=== PATIENT | male | born 1945 | race Caucasian/White ===

== ENCOUNTER 2022-07-09 02:48 | Observation (INO) ==
[2022-07-09] MEDS ORDERED: Ondansetron 4 MG/2 ML VIAL IVP PRN (05:44)
[2022-07-09] MEDS ORDERED: Naloxone 0.4 MG/ML INJ IVP PRN (05:44)
[2022-07-09] MEDS ORDERED: Ipratropium 1 PUFF INHALER IH PRN (06:37)
[2022-07-09] MEDS: *HR* Enoxaparin 40 MG/0.4 ML SYRINGE SQ SCH (09:57)
[2022-07-09] MEDS: Acetaminophen 325 MG TABLET PO PRN (11:07)
[2022-07-10 06:08] LABS: Basophils % 0.3 %; Eosinophils # 0.1 K/mcL (0.0-0.6); Eosinophils % 0.8 %; Hematocrit 39.2 % (37.5-50.1); Hemoglobin 13.5 g/dL (12.9-16.9); Lymphocytes # 2.2 K/mcL (0.6-4.6); Lymphocytes % 34.4 %; Mean Corpuscular HGB Conc 34.4 g/dL (31.6-35.5); Mean Corpuscular Hemoglobin 30.1 pg (28.0-33.3); Mean Corpuscular Volume 87.5 fL (83.0-100.0); Mean Platelet Volume 9.7 fL (9.4-12.4); Monocytes % 15.5 %; Neutrophils # 3.1 K/mcL (1.6-8.9); Platelet Count 210 K/mcL (140-400); Red Blood Count 4.48 M/mcL (4.19-5.50); White Blood Count 6.3 K/mcL (4.3-11.1)
[2022-07-10 06:26] LABS: Calcium 8.6 mg/dL (8.6-10.3); Magnesium 2.1 mg/dL (1.6-2.6); Potassium 3.3 mEq/L (3.5-5.1)
[2022-07-10] MEDS ORDERED: Famotidine 20 MG TABLET PO PRN (07:48)
[2022-07-10] MEDS: *HR* Enoxaparin 40 MG/0.4 ML SYRINGE SQ SCH (08:46)
[2022-07-10] MEDS: Aspirin Enteric Coated 81 MG Tablet PO SCH (08:46)
[2022-07-10] MEDS: hydroCHLOROthiazide 25 MG TABLET PO SCH (08:46)
[2022-07-10] MEDS ORDERED: amLODIPine 5 MG TABLET PO SCH (09:00)
[2022-07-10] MEDS ORDERED: Latanoprost 2.5 ML BOTTLE LEFT EYE SCH (21:00)
[2022-07-11] MEDS ORDERED: amLODIPine 5 MG TABLET PO SCH (09:00)
[2022-07-11] MEDS: hydroCHLOROthiazide 25 MG TABLET PO SCH (10:04)
[2022-07-11] MEDS: Aspirin Enteric Coated 81 MG Tablet PO SCH (10:05)
[2022-07-11] MEDS: *HR* Enoxaparin 40 MG/0.4 ML SYRINGE SQ SCH (10:06)
[2022-07-11] MEDS: Acetaminophen 325 MG TABLET PO PRN (10:10)
[2022-07-11 11:47] VITALS: BP 145/88; PULSE 72; TEMP 98.1; O2SAT 95
== END 2022-07-11 14:40 | disposition home or self-care (01) ==
LOC: 3ANU → SUATTDRO 02:48
PROVIDERS: ADMIT Pharmacist; ATTEND Registered Nurse